=== PATIENT | female | born 1945 | race Caucasian/White ===

== ENCOUNTER 2020-05-28 10:53 | Outpatient (CLI) | payer MEDICARE, SELFPAY ==
[2020-05-28 11:27] LABS: Basophils % 0.6 %; Eosinophils # 0.2 10^3/uL (0.0-0.8); Eosinophils % 2.6 %; Hematocrit 43.4 % (37.0-47.0); Hemoglobin 14.2 g/dL (11.5-15.3); Lymphocytes # 2.4 10^3/uL (0.8-4.8); Lymphocytes % 34.5 %; Mean Corpuscular HGB Conc 32.7 g/dL (30.0-36.0); Mean Corpuscular Hemoglobin 29.5 pg (28.0-34.0); Mean Platelet Volume 10.7 fL (7.4-10.4); Monocytes # 0.7 10^3/uL (0.2-0.9); Monocytes % 9.6 %; Neutrophils # 3.68 10^3/uL (1.8-7.7); Neutrophils % 52.4 %; Nucleated Red Blood Cells % 0 %; Platelet Count 256 10^3/cmm (130-400); Red Blood Count 4.82 10^6/uL (4.1-5.3); Red Cell Distribution Width 13.2 % (12.1-15.1)
[2020-05-28 12:00] LABS: Alanine Aminotransferase 16 U/L (0-33); Albumin Level 4.3 g/dL (3.5-5.2); Alkaline Phosphatase 123 IU/L (35-105); Aspartate Amino Transferase 21 U/L (0-32); Blood Urea Nitrogen 16 mg/dL (8-23); Calcium 9.9 mg/dL (8.5-10.5); Carbon Dioxide 24 mmol/L (22-29); Chloride 104 mmol/L (98-107); Chol HDL Ratio 2.35 mg/dL (0.0-4.40); Cholesterol 120 mg/dL (0-200); Free T4 Free Thyroxine 1.49 ng/dL (0.82-1.77); Glucose 132 mg/dL (65-115); HDL Cholesterol 51 mg/dL (60-100); LDL Cholesterol Calculated 42 mg/dL (50-129); LDL HDL Ratio 0.82 RATIO (0.00-3.22); Osmolality Calculated 289 mOsm/kg (285-295); Sodium 138 mmol/L (136-145); Total Bilirubin 0.6 mg/dL (0.15-1.2); Total Protein 7.3 g/dL (6.6-8.7); Triglycerides 137 mg/dL (0-150)
[2020-05-28 12:59] LABS: Estmated Average Glucose 123; Hemoglobin A1C 5.9 % (4.0-6.0)
== END 2020-05-28 10:54 | disposition home or self-care (01) ==
LOC: LAB 11:00
PROVIDERS: PCP Nurse Practitioner Family; Visit Provider Nurse Practitioner Family
DX: E11.69 Type 2 diabetes mellitus with other specified complication (principal); I10 Essential (primary) hypertension; E78.00 Pure hypercholesterolemia, unspecified
CPT/HCPCS: 36415; 80053; 80061; 83036; 84439; 84443; 85025

== ENCOUNTER → 2020-06-26 15:23 | Outpatient (BNVA) | payer MEDICARE, SELFPAY | PROVIDERS: PCP Nurse Practitioner Family; Referring Provider Nurse Practitioner Family; Visit Provider Specialist | DX: M17.0 Bilateral primary osteoarthritis of knee (principal); M25.562 Pain in left knee; M25.561 Pain in right knee | CPT/HCPCS: 73560; 73565 ==

== ENCOUNTER 2020-11-15 10:16 | Outpatient (CLI) | payer MEDICARE, SELFPAY ==
[2020-11-15 10:46] LABS: Hematocrit 43.3 % (37.0-47.0); Hemoglobin 14.2 g/dL (11.5-15.3); Mean Corpuscular HGB Conc 32.8 g/dL (30.0-36.0); Mean Corpuscular Volume 88.4 fL (81-99); Mean Platelet Volume 10.7 fL (7.4-10.4); Platelet Count 225 10^3/cmm (130-400); Red Cell Distribution Width 13.3 % (12.1-15.1); White Blood Count 5.6 10^3/uL (4.0-10.0)
[2020-11-15 11:09] LABS: Creatinine Urine, Random 71 mg/dL (28-217)
[2020-11-15 11:09] LABS: Alanine Aminotransferase 14 U/L (0-33); Alkaline Phosphatase 120 IU/L (35-105); Anion Gap 13.2 (5-19); Aspartate Amino Transferase 18 U/L (0-32); Blood Urea Nitrogen 15 mg/dL (8-23); Calcium 9.4 mg/dL (8.5-10.5); Carbon Dioxide 23 mmol/L (22-29); Chloride 106 mmol/L (98-107); Glucose 120 mg/dL (65-115); Osmolality Calculated 288 mOsm/kg (285-295); Potassium 4.2 mmol/L (3.5-5.1); Sodium 138 mmol/L (136-145); Total Bilirubin 0.4 mg/dL (0.15-1.2)
[2020-11-15 11:10] LABS: Microalbum Creatinine Ratio Ur 14 mg/dL (0-20)
[2020-11-15 11:11] LABS: Microalbumin Random Urine < 1 ug/dL (0-20)
[2020-11-15 11:22] LABS: Absolute Eosinophils 0.2 10^3/cmm (0.0-0.7); Basophils Absolute 0.1 10^3/cmm (0.0-0.2); Eosinophils 4 %; Lymphocytes 49 %; Monocytes Absolute 0.4 10^3/cmm (0.1-0.6); Platelet Estimate Normal (Normal); Segmented Neutrophils 35 %; Total Cells Counted 100 (0-100)
== END 2020-11-15 10:17 | disposition home or self-care (01) ==
PROVIDERS: PCP Nurse Practitioner Family; Visit Provider Nurse Practitioner Family
DX: I10 Essential (primary) hypertension (principal)
CPT/HCPCS: 36415; 80053; 82044; 85007; 85027

== ENCOUNTER → 2020-11-25 15:03 | Outpatient (BNVA) | payer MEDICARE, SELFPAY | PROVIDERS: Visit Provider Specialist | DX: Z01.812 Encounter for preprocedural laboratory examination (principal); M17.11 Unilateral primary osteoarthritis, right knee; M17.12 Unilateral primary osteoarthritis, left knee | CPT/HCPCS: 73560; 73565 ==

== ENCOUNTER → 2020-12-25 12:03 | Day surgery (SDC) | payer MEDICARE, SELFPAY | PROVIDERS: PCP Nurse Practitioner Family; Visit Provider Specialist | DX: Z01.818 Encounter for other preprocedural examination (principal) | CPT/HCPCS: 93005 ==

== ENCOUNTER → 2021-01-02 15:25 | Outpatient (BNVA) | payer MEDICARE, SELFPAY | PROVIDERS: PCP Nurse Practitioner Family; Visit Provider Specialist | DX: Z01.812 Encounter for preprocedural laboratory examination (principal); Z20.822 Contact with and (suspected) exposure to COVID-19 | CPT/HCPCS: 87635 ==

== ENCOUNTER 2021-01-07 09:24 | Observation (INO) | payer MEDICARE, SELFPAY ==
[2020-12-25 11:50] LABS: Add Urine Microscopic? NO; Charge for UA Resulting for Rev
[2020-12-25 11:54] VITALS: BMI 28.1
[2020-12-25 12:01] LABS: Glucose Urine UA Norm (Normal); Ketones Urine Negative (Negative); Protein Urine Neg (Negative); Specific Gravity, Urine 1.015 (1.005-1.030); Urine Appearance Clear (CLEAR); Urine Color Yellow (Yellow); pH Urine 5 (5-7)
[2020-12-25 12:02] LABS: Bilirubin Urine Neg (Negative); Blood Urine Neg (Negative); Leukocyte Esterase Urine Negative (Negative); Nitrate Urine Negative (Negative); Urobilinogen Urine Norm (Negative)
--- NOTE | 2020-12-25 12:03 | ECG_ITS ---
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 Measurements Intervals [place] Rate: 52 P: 60 SC: 158 QRS: -21 QRSD: 114 T: 4 QT: 438 QTc: 408 Interpretive Statements SINUS BRADYCARDIA WITH OCCASIONAL SUPRAVENTRICULAR PREMATURE COMPLEXES BORDERLINE LEFT AXIS DEVIATION [QRS AXIS < -20] LOW QRS VOLTAGE IN PRECORDIAL LEADS [QRS DEFLECTION < 1.0 mV IN CHEST LEADS] MODERATE INTRAVENTRICULAR CONDUCTION DELAY [110+ ms QRS DURATION] No previous ECG available for comparison Electronically Signed On 12-26-2020 23:59:45 CDT by Ashok Graves M.D. [id number]
[2020-12-25 12:23] LABS: Basophils % 0.5 %; Eosinophils # 0.2 10^3/uL (0.0-0.8); Hematocrit 42.1 % (37.0-47.0); Hemoglobin 13.6 g/dL (11.5-15.3); Lymphocytes % 37.8 %; Mean Corpuscular HGB Conc 32.3 g/dL (30.0-36.0); Mean Corpuscular Hemoglobin 28.8 pg (28.0-34.0); Mean Corpuscular Volume 89.2 fL (81-99); Mean Platelet Volume 10.7 fL (7.4-10.4); Monocytes # 0.8 10^3/uL (0.2-0.9); Monocytes % 10.1 %; Neutrophils # 3.87 10^3/uL (1.8-7.7); Neutrophils % 49.3 %; Nucleated Red Blood Cells % 0 %; Platelet Count 273 10^3/cmm (130-400); Red Blood Count 4.72 10^6/uL (4.1-5.3); Red Cell Distribution Width 13.9 % (12.1-15.1); White Blood Count 7.8 10^3/uL (4.0-10.0)
[2020-12-25 12:51] LABS: Alanine Aminotransferase 13 U/L (0-33); Albumin Level 4.1 g/dL (3.5-5.2); Alkaline Phosphatase 108 IU/L (35-105); Anion Gap 13.2 (5-19); Aspartate Amino Transferase 17 U/L (0-32); Blood Urea Nitrogen 17 mg/dL (8-23); Calcium 9.1 mg/dL (8.5-10.5); Carbon Dioxide 27 mmol/L (22-29); Chloride 102 mmol/L (98-107); Globulin 3.1 g/dL (1.3-4.6); Glucose 103 mg/dL (65-115); Osmolality Calculated 288 mOsm/kg (285-295); Potassium 4.2 mmol/L (3.5-5.1); Sodium 138 mmol/L (136-145); Total Bilirubin 0.5 mg/dL (0.15-1.2); Total Protein 7.2 g/dL (6.6-8.7)
--- NOTE | 2020-12-25 13:12 | ANES.PREANE2 ---
Pre-Anesthetic Assessment Pre-Anesthetic Assessment: Height/Weight: Height 1.7 m Weight 81.647 kg Preop Diagnosis: Right knee DJD Proposed Procedure: Operation Date: 01/07/21 07:00 Proposed Procedures p right Total Knee Arthroplasty 36996 m17.11(Right) - Kirsty Posadas MD Was Beta Bindu taken within 24 hours: Yes Was Clonidine taken within 24 hours: N/A Social: Social History: No alcohol and No tobacco Exam: Pre-Anes Outpt Exam: alert, oriented x 3, clear to auscultation bilaterally and regular rate & rhythm (saurav) Airway: Submandibular: WNL Cervical ROM: WNL MP: 2 Dentition: Full CV/HEM: CV/HEM: HTN Metabolic: Metabolic: DM and Hyperlipidemia Musc/skel: Musc/skel: OA/DJD Anesthetic Plan: ASA status: 3 Anesthesia: Regional (specify below) (SAB/adductor blk) Risk of > 500 ml blood loss (7ml/kg in children): No PFSH Anesthesia PFSH: Medical History High cholesterol Hypertension Type 2 diabetes mellitus Social History Smoking and tobacco status: never smoked Alcohol intake: former Data Anesthesia CBC & Chem 7: 12/25/20 12:12 12/25/20 12:12 Other Labs: Laboratory Results - last 48 hr 12/25/20 12/25/20 12/25/20 11:45 12:12 12:12 WBC 7.8 RBC 4.72 Hgb 13.6 Hct 42.1 MCV 89.2 MCH 28.8 MCHC 32.3 RDW 13.9 Plt Count 273 MPV 10.7 H Neut % (Auto) 49.3 Lymph % (Auto) 37.8 [place] % (Auto) 10.1 Eos % (Auto) 2.0 Baso % (Auto) 0.5 Neut # (Auto) 3.87 Lymph # (Auto) 3.0 [place] # (Auto) 0.8 Eos # (Auto) 0.2 Baso # (Auto) 0.0 Nucleated RBC % (auto) 0 Nucleated RBCs # 0.0 Sodium 138 Potassium 4.2 Chloride 102 Carbon Dioxide 27 Anion Gap 13.2 BUN 17 Creatinine 0.8 GFR Calculation Not Reportable Glucose 103 Calculated Osmolality 288 Calcium 9.1 Total Bilirubin 0.5 AST 17 ALT 13 Alkaline Phosphatase 108 H Total Protein 7.2 Albumin 4.1 Globulin 3.1 Urine Color Yellow Urine Appearance Clear Urine pH 5 Ur Specific Malott 1.015 Urine Protein Neg Urine Glucose (UA) Norm Urine Ketones Negative Urine Blood Neg Urine Nitrate Negative Urine Bilirubin Neg Urine Urobilinogen Norm Ur Leukocyte Esterase Negative Cardiac Studies: No Data to Display
[2021-01-07] VITALS (15 sets, daily range): BP systolic 104–162; BP diastolic 41–78; PULSE 49–70; RESP 15–20; TEMP 36.1–37.2; O2SAT 95–100
[2021-01-07] MEDS: sodium chloride 0.9% 1,000 ML 30 ML IV (06:35)
--- NOTE | 2021-01-07 06:41 | P.ANESUD_ITS ---
Pre-Anesthetic Update Pre-Anesthetic Assessment: Date of Surgery/Procedure: 01/07/21 Preop Hanh gnosis: Right knee DJD Proposed Procedure: Operation Date: 01/07/21 07:00 Proposed Procedures p right Total Knee Arthroplasty 66395 m17.11(Right) - Kirsty Posadas MD Any changes to Pre-Anesthetic Assessment?: No Exam: Pre-Anes Outpt Exam: alert, oriented x 3, clear to auscultation bilaterally and regular rate & rhythm Cardiac Studies: No Data to Display
[2021-01-07 06:43] LABS: Glucose Point of Care 152 mg/dL (70-110)
[2021-01-07] MEDS: acetaminophen 1,000 MG/100 ML PIGGYBACK 400 MG IV ×3 (06:44→22:57)
--- NOTE | 2021-01-07 06:54 | W.PM.OPSUD ---
Surgery/Procedure H&P Update DATE OF PROCEDURE: January 07, 2021 DATE H&P PERFORMED: 12/25/20 H&P UPDATE INFORMATION: I have reviewed H&P completed within last 30 days, I have examined patient prior to procedure, No changes to prior documentation and H&P is in [facility] EMR on date indicated PREOP DIAGNOSIS: Right knee DJD PLANNED PROCEDURE: Operation Date: 01/07/21 07:00 Proposed Procedures p right Total Knee Arthroplasty 73574 m17.11(Right) - Kirsty Posadas MD Related Problem List Diagnoses (1) Primary osteoarthritis of right knee:
[2021-01-07] MEDS: CELEcoxib 200 mg Capsule 400 MG PO (06:58)
[2021-01-07] MEDS: vancomycin 1,000 MG in sodium chloride 0.9% 250 ML 250 MG IV (06:59)
--- NOTE | 2021-01-07 07:41 | ANES.PROC ---
Anesthesia Procedures Procedure/Date: 01/07/21 Nerve Block ^: Nerve Block 1: Main Anesthesia: spinal anesthesia block Time Out Performed: Yes Consent: requested by attending/covering physician, from patient, risks and benefits reviewed and patient agrees to proceed Nerve block location: adductor canal (right) Anesthesia monitors applied: pulse oximetry, EKG, BP cuff and oxygen Nerve block position: supine Anesthetic Used: ropivicaine 0.5% Amount of anesthesia used (mL): 20 Ultrasound used to: recognize landmarks Nerve Stimulator Used?: No Interscalene/Femoral BLK: 4 stimuplex 21 g needle used for position and inplane approach, visualize local anesthetic spread and no vascular puncture identified Injection: neg aspiration of heme Patient Tolerated Procedure: well Complications: none
[2021-01-07] MEDS: vancomycin 1,000 MG SDV 1000 MG XX (08:06)
[2021-01-07] MEDS: ceFAZolin 1,000 mg SDV 2000 MG IRRIGATION (08:06)
--- NOTE | 2021-01-07 09:41 | XRR_ITS ---
NOTE: Report was unsigned for reason: Order was edited. Original Signature date and time was: 01/07/2021 1050 PROCEDURE INFORMATION: Exam: XR Right Knee Exam date and time: 01/07/2021 10:08 AM Age: 75 years old Clinical indication: Device placement; Joint replacement hardware; Prior surgery; Surgery date: Post-operative (0-2 days); Surgery type: Otal knee arthroplasty; Additional info: Status post total knee arthroplasty TECHNIQUE: Imaging protocol: XR Right knee. Views: 3 views. COMPARISON: CR XR knees AP WB w BI lmt ORTH 11/25/2020 3:09 PM FINDINGS: Bones/joints: The patient is status post right total knee arthroplasty with patellar resurfacing. No evidence of hardware related complication. No fracture or dislocation. Expected postoperative soft tissue changes noted. Soft tissues: See Bones/joints finding. MTDD XR/XR knee RT 3V* [id number] IMPRESSION: Status post right total knee arthroplasty without evidence of hardware related complication.
--- NOTE | 2021-01-07 09:53 | PM.OP ---
Operative Report Date of procedure: January 07, 2021 Pre-op Diagnosis: Right knee DJD Post-op diagnosis: same Post-op Findings: Significant degenerative osteoarthritis with large superior patellar osteophyte and multiple other osteophytes. Procedure Done: Right total knee arthroplasty. Implants: The Catalina total knee system with a size 5 triathlon beaded posterior stabilized femur right, a triathlon titanium tibial component size 6 beaded, a triathlon X3 posterior stabilized tibial bearing insert size 6 X 11 mm and a beaded triathlon titanium asymmetric patella size 35 x 10 mm Specimens removed/disposition: Bone, disposed of Pathology: none sent Surgeon: Kirsty Posadas Office Agent[facility] Anesthesia: MAC (Spinal with MAC) Estimated blood loss (mL): 25 Tourniquet time (min): 99 Tourniquet time: At 250 mmHg IV fluids (mL): 900 Urine output (mL): 200 Complications: None Findings: Severe degenerative osteoarthritis with large osteophytes. Large suprapatellar osteophyte in addition to multiple other osteophytes. Varus deformity. Condition: stable Disposition: PACU (Then to floor for postoperative rehabilitation and pain management.) Brief History: This 75-year-old woman presented to the office with severe right knee pain which was incapacitating. She had severe varus deformity of both knees with the right knee worse than the left. She was unable to ambulate or perform reasonable activities of daily living. None of these activities were able to be accomplished comfortably. She was unresponsive to conservative measures and wished to proceed with right total knee arthroplasty risks and complications were discussed. Consents were signed preoperatively, and questions were answered. The patient wished to proceed. Procedure: The patient was brought to the operating theater, and after undergoing adequate spinal anesthesia supplemented with regional block and MAC, ASA 3, the right lower extremity was prepped with Dura-Prep and draped in usual fashion following placement of a tourniquet high on the leg. The leg was then draped free. Following prepping and draping, the leg was exsanguinated, and the tourniquet was elevated to 250 mmHg for a total tourniquet time of 99 minutes. Prior to elevation of the tourniquet, but following exposure of the site of surgery, a surgical pause was performed. At the time of the surgical pause, we confirmed the site and side of surgery. Additionally, we confirmed the appropriate and timely administration of preoperative antibiotics, vancomycin 1 g. and Transexemic acid 1 g. The availability of equipment was confirmed, and the patient's identity was verbalized as well. Following the surgical pause, an incision was made centering over the patella continuing proximally and distally as necessary to allow access to the knee joint. Dissection continued through skin and soft tissues using a scalpel. Hemostasis was obtained using electrocautery. The skin incision was followed by a median parapatellar arthrotomy. The leg was extended and the patella was everted. Following this, the leg was returned to flexed position. The distal femur was exposed, and a drill hole was made in this for placement of the distal femoral jig. The distal femoral jig was set at 5? of valgus. The distal femoral cutting block was then placed in appropriate position, and an devaughn wing was used to confirm an appropriate amount of distal femur would be resected. The distal femoral resection was accomplished with 8 mm of bone being resected distally. After the distal femoral resection had been accomplished, the femur was measured and it measured a size 5. Medial lateral dimension also measured a size 5. A size 5 femoral cutting block was placed in position, and we were then able to accomplish the anterior, posterior and chamfer cuts. This jig was then removed and the notch guide was placed in position. With the notch guide in appropriate position, the notch was excised including resection of the anterior and posterior cruciate ligaments. This notch was to allow for the posterior stabilized femoral component. At this point, the femur was prepared and attention was directed to the proximal tibia. The posterior knee retractor was placed along with medial and lateral retractors. Further resection of the menisci was accomplished as we had better visualization. A complete meniscectomy was performed both medially and laterally with care being taken to protect the popliteus. Retractors were then placed so that the proximal tibia was well visualized. A drill hole was then made in the tibia for placement of the intramedullary guide. This guide was placed so that approximately 2 mm of bone would be resected from the deficient medial tibial plateau. The intramedullary guide was utilized supplemented with an extramedullary guide to assure appropriate alignment for the proximal tibial resection. The proximal tibial jig was then evaluated, pinned in position, and the proximal tibial resection was accomplished without difficulty. The jig was removed, and the proximal tibia was measured. It measured a size 6. We then attempted a trial reduction with a size 6 by 9 mm. Osteophytes were also removed from the tibia. The femoral component was placed in position for the trial reduction, and the knee was placed through range of motion. With this, there was appropriate patellar tracking. The knee was found to be slightly tight in the posterior aspect, and posterior as well as medial release was accomplished. Extension was noted to be full as well. After the knee was manipulated following the posterior release, we were able to insert a size 6 x 11 mm insert. With this we had excellent varus valgus alignment and full extension. The knee was stable to varus valgus stress as well. Therefore, this was the chosen component. There was full extension and flexion without lift off and the rotation of the tibia was marked. Alignment was checked from the hip to the ankle, and this was noted to be appropriate as well. Attention was then directed to the patella. The patella was measured with a caliper. We resected sufficient patella to leave approximately 14 mm of patella remaining. Measurements of the patella then indicated that a size asymmetric 35 mm x 10 mm was the appropriate patellar size. We then placed the jig to drill for the 3 pegs of the press-fit patella, and these drill holes were made without incident. A trial patella was then placed, and the knee was placed through range of motion. The patella was noted to track nicely without evidence of subluxation. The femur was prepared for a press-fit femur by drilling 2 holes for the femoral pegs. All trial components were subsequently removed. The tibial tray was then pinned into position, and we broached the tibia for the stem of the tibial component. Subsequently, 4 drill holes were made for placement of the press-fit tibia. This was accomplished without difficulty. Care was taken to assure appropriate rotation of the tibia as well as appropriate position on the proximal tibia. The tibial tray was completely seated on the proximal tibia. Following broaching, the tibial guide was removed, and all surfaces were copiously irrigated. The surfaces were then dried and a bone plug was placed into the distal femur. Exparel was also injected at this point. The Tritanium tibia was impacted into position. The beaded femur was then impacted into position in a cementless fashion. The tibial insert was placed. The patella was pressed into position with a patellar clamp. The knee was irrigated with 20 mL of Betadine and 500 mL of normal saline, and this was allowed to remain in the knee for 3-4 minutes. The knee was then copiously irrigated and suctioned dry. Attention was then directed to closure. Closure was accomplished with 0 Vicryl in the fascial tissues. Following this, a 2-0 Monocryl was used in the subcutaneous tissues, and the skin was closed with skin miles. A sterile dressing was then placed consisting of Dermabond Prineo, Telfa, 4x4's, sterile soft roll, and an Calvin wrap. The patient was returned the Recovery Room in a satisfactory condition. X-rays were obtained there. The patient will be discharged to the floor for postoperative rehabilitation and pain management. Associated Problem List Diagnoses (1) Primary osteoarthritis of right knee:
[2021-01-07] MEDS: chlorhexidine gluconate 0.12% Btl 473 mL 30 ML MUCOUS MEM ×3 (12:22→21:42)
--- NOTE | 2021-01-07 16:56 | ANE.PACU2 ---
Inpatient post-anesthesia follow up: Airway intact: Yes Vital signs: Temperature 97.5 F Pulse Rate 65 Respiratory Rate 18 Blood Pressure 133/66 Pulse Oximetry 98 Oxygen Delivery Me thod Room Air Oxygen Flow Rate Fraction of Inspir ed Oxygen Hydration adequate: Yes Nausea and vomiting: No Pain level: 2 Mental status: Baseline
[2021-01-07] MEDS: mupirocin oint 22 gm 1 APPLIC NASAL (17:20)
[2021-01-07] MEDS: aspirin 325 mg EC Tablet PO (17:21)
[2021-01-07] MEDS: calcium carbonate 500 mg Chew Tablet 1000 MG PO (17:21)
[2021-01-07] MEDS: iron polysaccharide complex 150 mg Capsule PO (17:21)
[2021-01-07] MEDS: lisinopril 5 mg Tablet PO (17:21)
[2021-01-07] MEDS: sennosides-docusate Tablet 2 TAB PO (17:21)
[2021-01-07] MEDS: CELEcoxib 200 mg Capsule PO (18:16)
[2021-01-07] MEDS: metoprolol tartrate 25 mg Tablet 12.5 MG PO (21:39)
[2021-01-08] VITALS: BP 111/65; PULSE 57; RESP 18; TEMP 36.8; O2SAT 97
[2021-01-08 02:46] LABS: Basophils % 0.3 %; Eosinophils # 0.2 10^3/uL (0.0-0.8); Eosinophils % 2.2 %; Hematocrit 34.1 % (37.0-47.0); Hemoglobin 11.2 g/dL (11.5-15.3); Lymphocytes # 2.6 10^3/uL (0.8-4.8); Lymphocytes % 29.8 %; Mean Corpuscular HGB Conc 32.8 g/dL (30.0-36.0); Mean Corpuscular Hemoglobin 29.6 pg (28.0-34.0); Monocytes # 1.2 10^3/uL (0.2-0.9); Monocytes % 14.4 %; Neutrophils # 4.54 10^3/uL (1.8-7.7); Nucleated Red Blood Cells % 0 %; Platelet Count 199 10^3/cmm (130-400); Red Blood Count 3.79 10^6/uL (4.1-5.3); Red Cell Distribution Width 13.9 % (12.1-15.1); White Blood Count 8.6 10^3/uL (4.0-10.0)
[2021-01-08 03:04] LABS: Anion Gap 11.9 (5-19); Blood Urea Nitrogen 14 mg/dL (8-23); Calcium 8.3 mg/dL (8.5-10.5); Carbon Dioxide 23 mmol/L (22-29); Chloride 108 mmol/L (98-107); Glucose 143 mg/dL (65-115); Osmolality Calculated 291 mOsm/kg (285-295); Potassium 3.9 mmol/L (3.5-5.1); Sodium 139 mmol/L (136-145)
[2021-01-08 04:00] VITALS: BP 100/59; PULSE 54; RESP 16; TEMP 36.7; O2SAT 97
[2021-01-08] MEDS: acetaminophen 1,000 MG/100 ML PIGGYBACK 400 MG IV (06:13)
[2021-01-08] MEDS: CELEcoxib 200 mg Capsule PO (06:13)
[2021-01-08] MEDS: vancomycin 1,000 MG in sodium chloride 0.9% 250 ML 250 MG IV (06:15)
[2021-01-08 08:30] VITALS: BP 136/78; PULSE 59; RESP 18; TEMP 36.7; O2SAT 97
[2021-01-08] MEDS: lisinopril 5 mg Tablet PO (08:37)
[2021-01-08] MEDS: metformin 500 mg Tablet PO (08:37)
[2021-01-08] MEDS: cholecalciferol (vitamin D3) 1,000 unit Tablet 1000 UNIT PO (08:37)
[2021-01-08] MEDS: multivitamin therapeutic Tablet 1 TAB PO (08:37)
[2021-01-08] MEDS: iron polysaccharide complex 150 mg Capsule PO (08:37)
[2021-01-08] MEDS: aspirin 325 mg EC Tablet PO (08:37)
[2021-01-08] MEDS: omega-3 fatty acids 1,000 mg Capsule 1000 MG PO (08:37)
[2021-01-08] MEDS: amlodipine 10 mg Tablet PO (08:37)
[2021-01-08] MEDS: calcium carbonate 500 mg Chew Tablet 1000 MG PO (08:38)
[2021-01-08] MEDS: sennosides-docusate Tablet 2 TAB PO (08:38)
[2021-01-08] MEDS: metoprolol tartrate 25 mg Tablet 12.5 MG PO (08:38)
[2021-01-08] MEDS: atorvastatin 40 mg Tablet 20 MG PO (08:38)
[2021-01-08] MEDS: glimepiride 2 mg Tablet 1 MG PO (08:39)
[2021-01-08] MEDS: chlorhexidine gluconate 0.12% Btl 473 mL 30 ML MUCOUS MEM ×2 (08:39→12:12)
[2021-01-08] MEDS: mupirocin oint 22 gm 1 APPLIC NASAL (08:47)
[2021-01-08 09:16] VITALS: RESP 18
[2021-01-08] MEDS: oxyCODONE 5 mg IR Tab/Cap PO (09:16)
--- NOTE | 2021-01-08 10:23 | PC.CHAP ---
Pastoral Care Encounter/Spiritual Assessment Type of Contact [] Declined candles pourer visit [] Patient/Family/Request visit [] Outpatient visit [] Follow-up visit [] Physician referral x [] Code/Alert [x] Routine visit [] Staff referral [] Actively dying [] Patient sleeping [] Family support [] [] Out of room [] Palliative care [] [] Receiving care in room [] Pre-surgical visit [] Trauma [] Long length of stay [] ICU visit [] Other: Relational/Emotional Strength [x] Patient feels connected with others/family/visitors/staff [] Distress [] Loneliness/isolation [] Abandonment Spirituality of Patient [x] Person of Taryn [] Attends Catholic of their Taryn [] Believes in Prayer [] Reads Bible or Jewish materials [] There are Spiritual issues to be addressed Kitchen Designer Interventions x[] Prayer [x] Active listening [x] Non-anxious presence [] Spiritual/emotional support [] Crisis/trauma care [] Spiritual counseling [] Bereavement support [] Provided bereavement packet [] Provided Bible/devotional materials [] Provided toy/stuffed animal, coloring book to patient or family member [] Provided Communion [] Anointing/Moore [] Salvation [x] Completed spiritual assessment [] Other: Impact on Illness or Injury [] Angry [] Fearful [] Anxious [] Often cries [] Exhaustion [] Unable to work [] Unable to attend zoroastrianism [] Unable to walk/stand [] Unable to read [] Unable to drive [] Unable to eat/drink [] Unable to sleep [] Unable to be with family [] Patient intubated [] Other: Summary feeling good Time spent with patient 15 min
[2021-01-08 11:25] VITALS: BP 108/68; PULSE 51; RESP 16; TEMP 36.5; O2SAT 98
--- NOTE | 2021-01-08 14:21 | PM.DCS ---
Discharge Providers Date of Admission: 01/07/21 09:24 Date of Discharge: January 08, 2021 Attending Provider at Admission: Kirsty Posadas MD Attending Provider at Discharge: Kirsty Posadas MD Primary Care Provider: Regla Orona NP Diagnoses at Discharge Discharge Diagnosis (1) Primary osteoarthritis of right knee: Status: Acute (2) History of total right knee replacement: Status: Acute Permanent problem details: Catalina total knee system with a size 5 triathlon beaded posterior stabilized femur right, a triathlon titanium tibial component size 6 beaded, a triathlon X3 posterior stabilized tibial bearing insert size 6 X 11 mm and a beaded triathlon titanium asymmetric patella size 35 x 10 mm Reason for Visit Reason for Visit: right Total Knee Arthroplasty 12150 m17.11 Hospital Course Hospital Course This 75-year-old woman presented with complaints of severe right knee pain. She was brought to the hospital for same-day surgery in the form of right total knee arthroplasty. She tolerated the procedure well. She worked with physical therapy the following day and was independent in her room. Pain was well managed on oral pain medication. There is no evidence of infection or DVT. There is no drainage from the wound. The patient wished to be discharged home with home health. I was in agreement with this and this was arranged for her. Physical Exam Const: COMMON NORMALS: no acute distress, average body habitus, patient oriented x3 and alert GENERAL APPEARANCE: cooperative and comfortable ORIENTATION/CONSCIOUSNESS: Yes awake HENMT: COMMON NORMALS: normocephalic and atraumatic HEAD & SCALP: normocephalic and atraumatic Eye: GENERAL EYE: appearance normal, both eyes and all related structures Chest: COMMONS NORMALS: normal inspection of the chest Resp: COMMON NORMALS: normal respiratory effort EFFORT & INSPECTION: Yes able to speak in complete sentences and Yes symmetric chest movement Extremity: RIGHT LOWER EXTREMITY: Yes knee joint (Dressing is removed. Wound is benign.) Right knee: Yes inspection (There is no drainage and minimal swelling.), Yes palpation (Minimal tenderness.), Yes ROM (Not evaluated.) and Yes neurovascular exam (Intact with no evidence of DVT.) Neuro: COMMON NORMALS: patient oriented x3 SENSORIUM/ORIENTATION: Yes alert Psych: COMMON NORMALS: mental status grossly normal APPEARANCE: Yes grossly normal ATTITUDE: Yes calm and Yes engaged ATTENTION/CONCENTRATION: Yes attention grossly intact Skin: COMMON NORMALS: no rashes or lesions noted GENERAL SKIN EXAM: no rashes or lesions noted Urinary Catheter Management^: F: Cath Placed During This Visit: yes, but has since been removed by the nurse Reason for Continuing Indwelling Catheter: Perioperative Use in Selected Surgeries Urinary Catheter Date of Insertion: 01/07/21 Urinary Catheter Time of Insertion: 07:25 Date Urinary Catheter Removed: 01/08/21 Time Urinary Catheter Discontinued: 06:22 Discharge Data Data Completed and Pending: Completed Studies During Hospitalization Category Date Time Status XR knee RT 1-2V 7 3560 Urgent Exams 01/07/21 09:41 Completed Labs from last 24 hours 01/08/21 01/08/21 02:21 02:21 WBC 8.6 RBC 3.79 L Hgb 11.2 L Hct 34.1 L MCV 90.0 MCH 29.6 MCHC 32.8 RDW 13.9 Plt Count 199 MPV 11.0 H Neut % (Auto) 53.0 Lymph % (Auto) 29.8 [place] % (Auto) 14.4 Eos % (Auto) 2.2 Baso % (Auto) 0.3 Neut # (Auto) 4.54 Lymph # (Auto) 2.6 [place] # (Auto) 1.2 H Eos # (Auto) 0.2 Baso # (Auto) 0.0 Nucleated RBC % (a uto) 0 Nucleated RBCs # 0.0 Sodium 139 Potassium 3.9 Chloride 108 H Carbon Dioxide 23 Anion Gap 11.9 BUN 14 Creatinine 0.7 GFR Calculation Not Reportable Glucose 143 H Calculated Osmolal ity 291 Calcium 8.3 L Vitals: Last Vital Signs Temp 97.7 F 01/08/21 11:25 Pulse 51 L 01/08/21 11:25 Resp 16 01/08/21 11:25 BP 108/68 01/08/21 11:25 Pulse Ox 98 01/08/21 11:25 Discharge Plan Discharge Patient Disposition: Home Health Service Condition: Stable Prescriptions: New acetaminophen 500 mg Tablet 1,000 mg PO Q8H Qty: 0 RF: 0 aspirin 325 mg Tablet,Delayed Release (Dr/Ec) 325 mg PO BID Qty: 0 RF: 0 celecoxib 200 mg Capsule 200 mg PO DAILY Qty: 30 RF: 1 oxycodone 5 mg Tablet 5 mg PO Q4H PRN (Reason: Moderate Pain) 7 Days Qty: 30 RF: 0 Continued metoprolol tartrate 25 mg tablet 12.5 mg PO BID RF: 0 lovastatin 10 mg tablet 10 mg PO DAILY RF: 0 glimepiride 1 mg tablet 1 mg PO DAILY RF: 0 omega-3 fatty acids [Fish Oil Concentrate] 1,000 mg capsule 1,000 mg PO DAILY RF: 0 multivitamin Tablet 1 tab PO DAILY RF: 0 turmeric 400 mg capsule 400 mg PO DAILY RF: 0 gelatin 600 mg capsule 600 mg PO DAILY PRN (Reason: skin) RF: 0 amlodipine 5 mg tablet 10 mg PO DAILY RF: 0 lisinopril 5 mg Tablet 5 mg PO BID RF: 0 metformin 500 mg Tablet 500 mg PO DAILY RF: 0 Held meloxicam 15 mg tablet 15 mg PO DAILY PRN (Reason: Pain) RF: 0 Hold Instructions: Resume on 02/07/21. Discharge Orders: Discharge Order (Routine); Ordered 01/08/21 Ordered By: Kirsty Posadas Referrals: [facility] [Outside] Kirsty Posadas MD [Physician] - 01/20/21 11:15 am Regla Orona NP [Primary Care Provider] - 01/15/21 9:00 am Discharge Diet: Advance as tolerated, Usual diet and Diabetic Discharge Activity: Increase activity as tolerated, Limit activity as instructed, Use walker/crutches as instructed and As per PT/OT instructions Patient Instructions: Aspirin (By mouth), Oxycodone, Rapid Release (By mouth), Celecoxib (By mouth), Total Knee Replacement (DC), Opioid Safety Activity Restrictions/Additional Instructions: Ice and elevation right lower extremity. Range of motion, gait training, and strengthening per physical therapy. Discharge Attestations Time Spent in Discharge Care*: greater than 30 min Specific Discharge Activities: educating patient, discussing with correctional casework specialist/social workers/dc planners and documenting/other paperwork Quality Metrics Clinical Quality Measures During this hospital stay, did patient experience: None Coding Level of Care Code Acute g FW DC note Diagnoses Primary osteoarthritis of right knee M17.11 History of total right knee replacement Z96.651
[2021-01-08 15:05] VITALS: BP 108/68; PULSE 51; RESP 16; TEMP 36.5; O2SAT 98
== END 2021-01-08 15:06 | disposition home health service (06) ==
LOC: MEDSURG 09:25
PROVIDERS: Admitting Provider Specialist; PCP Nurse Practitioner Family; Visit Provider Specialist
PROC: (CPT 27447; principal; 2021-01-07 07:00)
DX: M17.11 Unilateral primary osteoarthritis, right knee (principal); I10 Essential (primary) hypertension; E11.9 Type 2 diabetes mellitus without complications; E78.5 Hyperlipidemia, unspecified; M19.90 Unspecified osteoarthritis, unspecified site
CPT/HCPCS: 27447; 36415; 36416; 51702; 64447; 73560; 73562; 76942; 80048; 80053; 81003; 82962; 85025; 96365; 97110; 97116; 97161; 97165; C1776; C9290; G0378; J0690; J2704; J2795; J3370; J3490; J7030; J7050

== ENCOUNTER → 2021-01-20 11:12 | Outpatient (BNVA) | payer MEDICARE, SELFPAY | PROVIDERS: PCP Nurse Practitioner Family; Visit Provider Specialist | DX: Z96.651 Presence of right artificial knee joint (principal); Z47.1 Aftercare following joint replacement surgery | CPT/HCPCS: 73560; 73565 ==

== ENCOUNTER → 2021-02-17 14:47 | Outpatient (BNVA) | payer MEDICARE, SELFPAY | PROVIDERS: PCP Nurse Practitioner Family; Visit Provider Specialist | DX: Z96.651 Presence of right artificial knee joint (principal); M17.12 Unilateral primary osteoarthritis, left knee | CPT/HCPCS: 73560; 73565 ==

== ENCOUNTER 2021-02-26 12:56 | Outpatient (RCR) | payer MEDICARE, SELFPAY | END 2021-03-08 23:59 | disposition home or self-care (01) | LOC: SPT 12:56 | PROVIDERS: PCP Nurse Practitioner Family; Referring Provider Specialist; Visit Provider Specialist | DX: Z47.1 Aftercare following joint replacement surgery (principal); Z96.651 Presence of right artificial knee joint | CPT/HCPCS: 97161 ==

== ENCOUNTER → 2021-04-23 14:31 | Outpatient (BNVA) | payer MEDICARE, SELFPAY | PROVIDERS: PCP Nurse Practitioner Family; Visit Provider Specialist | DX: Z96.651 Presence of right artificial knee joint (principal) | CPT/HCPCS: 73560; 73565 ==

== ENCOUNTER 2021-08-21 15:29 | Outpatient (CLI) | payer MEDICARE, SELFPAY ==
[2021-08-21 16:17] LABS: Hematocrit 40.3 % (37.0-47.0); Hemoglobin 13.3 g/dL (11.5-15.3); Mean Corpuscular Hemoglobin 29.2 pg (28.0-34.0); Mean Corpuscular Volume 88.6 fl (81-99); Mean Platelet Volume 10.8 fL (7.4-10.4); Platelet Count 301 10^3/cmm (130-400); Red Blood Count 4.55 10^6/uL (4.1-5.3); Red Cell Distribution Width 13.5 % (12.1-15.1); White Blood Count 9.6 10^3/uL (4.0-10.0)
[2021-08-21 16:51] LABS: Alanine Aminotransferase 15 U/L (0-33); Albumin Level 4.2 g/dL (3.5-5.2); Alkaline Phosphatase 107 IU/L (35-105); Anion Gap 18.3 (5-19); Aspartate Amino Transferase 17 U/L (0-32); Blood Urea Nitrogen 19 mg/dL (8-23); Calcium 8.8 mg/dL (8.5-10.5); Carbon Dioxide 20 mmol/L (22-29); Chloride 101 mmol/L (98-107); Chol HDL Ratio 2.29 mg/dL (0.0-4.40); Cholesterol 133 mg/dL (0-200); Free T4 Free Thyroxine 1.38 ng/dL (0.82-1.77); Globulin 2.4 g/dL (1.3-4.6); Glucose 83 mg/dL (65-115); HDL Cholesterol 58 mg/dL (60-100); LDL Cholesterol Calculated 57 mg/dL (50-129); Osmolality Calculated 281 mOsm/kg (285-295); Potassium 4.3 mmol/L (3.5-5.1); Sodium 135 mmol/L (136-145); Thyroid Stimulating Hormone 0.89 uIU/mL (0.27-4.20); Total Bilirubin 0.3 mg/dL (0.15-1.2); Total Protein 6.6 g/dL (6.6-8.7); Triglycerides 92 mg/dL (0-150); VLDL Cholestrol Calculation 18 mg/dL (0-30)
[2021-08-21 16:57] LABS: Absolute Eosinophils 0.2 10^3/cmm (0.0-0.7); Absolute Neutrophil 4.8 10^3/cmm (1.4-6.5); Absolute Segmented Neutrophil 4.8 10/cmm (1.6-7.1); Eosinophils 3 %; Lymphocytes 29 %; Lymphocytes Absolute 3.8 10^3/cmm (1.2-3.4); Monocytes Absolute 0.7 10^3/cmm (0.1-0.6); Platelet Estimate Normal (Normal); Segmented Neutrophils 50 %; Total Cells Counted 100 (0-100)
[2021-08-21 17:12] LABS: Estmated Average Glucose 114; Hemoglobin A1C 5.6 % (4.0-6.0)
[2021-08-21 17:19] LABS: Creatinine Urine, Random 62 mg/dL (28-217)
[2021-08-21 17:22] LABS: Microalbum Creatinine Ratio Ur 16 mg/dL (0-20); Microalbumin Random Urine 1 ug/dL (0-20)
== END 2021-08-21 15:30 | disposition home or self-care (01) ==
PROVIDERS: PCP Nurse Practitioner Family; Visit Provider Nurse Practitioner Family
DX: I10 Essential (primary) hypertension (principal); E11.69 Type 2 diabetes mellitus with other specified complication
CPT/HCPCS: 80053; 80061; 82044; 83036; 84439; 84443; 85007; 85027

== ENCOUNTER 2021-09-16 09:42 | Outpatient (CLI) | payer MEDICARE, SELFPAY ==
[2021-09-16 10:29] LABS: Hematocrit 41.7 % (37.0-47.0); Hemoglobin 13.7 g/dL (11.5-15.3); Mean Corpuscular HGB Conc 32.9 g/dL (30.0-36.0); Mean Corpuscular Hemoglobin 29.4 pg (28.0-34.0); Mean Corpuscular Volume 89.5 fl (81-99); Mean Platelet Volume 10.9 fL (7.4-10.4); Platelet Count 277 10^3/cmm (130-400); Red Blood Count 4.66 10^6/uL (4.1-5.3); Red Cell Distribution Width 13.7 % (12.1-15.1); White Blood Count 7.4 10^3/uL (4.0-10.0)
[2021-09-16 10:51] LABS: Estmated Average Glucose 128; Hemoglobin A1C 6.1 % (4.0-6.0)
[2021-09-16 11:09] LABS: Absolute Neutrophil 3.8 10^3/cmm (1.4-6.5); Absolute Segmented Neutrophil 3.6 10/cmm (1.6-7.1); Band Neutrophils Absolute 0.2 10^3/cmm (0.0-1.2); Eosinophils 1 %; Lymphocytes 36 %; Lymphocytes Absolute 2.7 10^3/cmm (1.2-3.4); Monocytes Absolute 0.9 10^3/cmm (0.1-0.6); Platelet Estimate Normal (Normal); Segmented Neutrophils 48 %; Total Cells Counted 100 (0-100)
[2021-09-16 11:35] LABS: Alanine Aminotransferase 14 U/L (0-33); Albumin Level 4.5 g/dL (3.5-5.2); Alkaline Phosphatase 123 IU/L (35-105); Anion Gap 15.3 (5-19); Aspartate Amino Transferase 22 U/L (0-32); Blood Urea Nitrogen 13 mg/dL (8-23); Calcium 9.3 mg/dL (8.5-10.5); Carbon Dioxide 24 mmol/L (22-29); Chloride 102 mmol/L (98-107); Chol HDL Ratio 2.26 mg/dL (0.0-4.40); Cholesterol 147 mg/dL (0-200); Free T4 Free Thyroxine 1.56 ng/dL (0.82-1.77); Globulin 2.5 g/dL (1.3-4.6); Glucose 128 mg/dL (65-115); HDL Cholesterol 65 mg/dL (60-100); LDL Cholesterol Calculated 61 mg/dL (50-129); LDL HDL Ratio 0.94 RATIO (0.00-3.22); Osmolality Calculated 286 mOsm/kg (285-295); Potassium 4.3 mmol/L (3.5-5.1); Sodium 137 mmol/L (136-145); Thyroid Stimulating Hormone 0.86 uIU/mL (0.27-4.20); Total Bilirubin 0.5 mg/dL (0.15-1.2); Triglycerides 105 mg/dL (0-150)
== END 2021-09-16 09:43 | disposition home or self-care (01) ==
LOC: LAB 09:50
PROVIDERS: PCP Nurse Practitioner Family; Visit Provider Nurse Practitioner Family
DX: E11.69 Type 2 diabetes mellitus with other specified complication (principal)
CPT/HCPCS: 36415; 80053; 80061; 83036; 84439; 84443; 85007; 85027

== ENCOUNTER → 2022-10-14 14:45 | Outpatient (BNVA) | payer MEDICARE, SELFPAY | PROVIDERS: Referring Provider Family Medicine; Visit Provider Specialist | DX: M17.12 Unilateral primary osteoarthritis, left knee (principal); Z96.651 Presence of right artificial knee joint | CPT/HCPCS: 73560; 73565; 99214 ==

== ENCOUNTER 2022-11-11 13:31 | Outpatient (CLI) | payer MEDICARE, SELFPAY ==
--- NOTE | 2022-11-11 13:30 | CT_ITS ---
WS: [id number] CT LEFT KNEE, NONCONTRAST TECHNIQUE: Noncontrast CT of the LEFT knee to include the LEFT hip and ankle. CLINICAL INFORMATION: KNEE PAIN COMPARISON: None. DLP: 1024.[address] scans at [facility] use at least one of these dose optimization techniques: automated e xposure control; mA and/or kV adjustment per patient size (includes targeted exams where dose is matc hed to clinical indication); or iterative reconstruction. FINDINGS: Prior postoperative changes RIGHT TKA. Advanced tricompartmental arthritis LEFT knee worse medial gerhard nt compartment with [id number] articulation. Chondrocalcinosis. Hypertrophic patella. Vascular calc ification. Small suprapatellar effusion. Hypertrophic changes along the joint line. Small popliteal c yst. Moderate degenerative arthritis LEFT greater than RIGHT SI joints. Mild degenerative narrowing both h ips. Normal visualized pubic rami. A few sigmoid diverticuli. Calcified uterine fibroid measuring 3.[address]/CT knee LT NEYMAR IMPRESSION: Images obtained for preoperative purposes.
== END 2022-11-11 13:32 | disposition home or self-care (01) ==
PROVIDERS: PCP Family Medicine; Visit Provider Specialist
DX: M25.562 Pain in left knee (principal)
CPT/HCPCS: 73700

== ENCOUNTER 2022-11-30 14:04 | Outpatient (CLI) | payer MEDICARE, SELFPAY ==
[2022-11-30 14:40] LABS: Basophils % 0.5 %; Eosinophils # 0.2 10^3/uL (0.0-0.8); Eosinophils % 2.8 %; Hematocrit 42.4 % (37.0-47.0); Hemoglobin 13.9 g/dL (11.5-15.3); Lymphocytes # 3.6 10^3/uL (0.8-4.8); Lymphocytes % 41.4 %; Mean Corpuscular HGB Conc 32.8 g/dL (30.0-36.0); Mean Corpuscular Hemoglobin 28.4 pg (28.0-34.0); Mean Corpuscular Volume 86.7 fl (81-99); Mean Platelet Volume 10.5 fL (7.4-10.4); Monocytes # 0.9 10^3/uL (0.2-0.9); Monocytes % 9.9 %; Neutrophils # 3.88 10^3/uL (1.8-7.7); Neutrophils % 45.2 %; Nucleated Red Blood Cells % 0 %; Platelet Count 266 10^3/cmm (130-400); Red Blood Count 4.89 10^6/uL (4.1-5.3); White Blood Count 8.6 10^3/uL (4.0-10.0)
[2022-11-30 14:59] LABS: Anion Gap 14.5 (5-19); Blood Urea Nitrogen 19 mg/dL (8-23); Calcium 9.2 mg/dL (8.5-10.5); Carbon Dioxide 23 mmol/L (22-29); Chloride 101 mmol/L (98-107); Glucose 99 mg/dL (65-115); Osmolality Calculated 280 mOsm/kg (285-295); Potassium 4.5 mmol/L (3.5-5.1); Sodium 134 mmol/L (136-145)
== END 2022-11-30 14:05 | disposition home or self-care (01) ==
PROVIDERS: PCP Family Medicine; Visit Provider Specialist
DX: M17.12 Unilateral primary osteoarthritis, left knee
CPT/HCPCS: 36415; 80048; 85025; 99214

== ENCOUNTER → 2022-12-08 10:21 | Outpatient (BNVA) | payer MEDICARE, SELFPAY | PROVIDERS: PCP Family Medicine; Referring Provider Specialist; Visit Provider Clinical Nurse Specialist Adult Health | DX: E11.9 Type 2 diabetes mellitus without complications (principal); M17.12 Unilateral primary osteoarthritis, left knee | CPT/HCPCS: 83036 ==

== ENCOUNTER 2022-12-10 12:21 | Outpatient (CLI) | payer MEDICARE, SELFPAY ==
--- NOTE | 2022-12-10 12:00 | USCV_ITS ---
Maria Fernanda Dahl Age: 76 Gender: F : 1945 Exam Date: 12/10/2022 12:45 Ordering Phys: Wander Brennan NP Technologist: Gary Lilly Exam Location[place] [facility] [place]: new murmur BP: 130 / 70 HR: 70 Rhythm: Sinus Technical Quality: Adequate MEASUREMENTS (Male / Female) Normal Values 2D ECHO LVOT Diameter 2.1 cm LV Ejection Fraction MOD 2C 64.3 % LV Ejection Fraction 2C AL 64.4 % LA Diameter 3.6 cm LA Width 4.0 cm LA Height 4.6 cm RA Width 3.5 cm RA Height 4.7 cm Aorta at Sinotubular Diameter 2.4 cm IVC Diameter 1.9 cm M-MODE Aortic Annulus Diameter 2.9 cm LA Ao Ratio MM 1.2 MV E Point Septal Separation 0.7 cm DOPPLER AV Peak Velocity 202.3 cm/s LVOT Peak Velocity 138.0 cm/s AV Area Cont Eq vti 2.5 cm squared AV Area Cont Eq pk 2.4 cm squared MV Area PHT 4.3 cm squared Mitral E to A Ratio 1.0 MV E' Velocity 51.5 cm/s Mitral E to MV E' Ratio 16.6 Mitral E to LV E' Lateral Ratio 18.8 Mitral E to LV E' Septal Ratio 14.8 TR Peak Velocity 314.7 cm/s TR Peak Gradient 39.6 mmHg TR Mean Velocity 264.1 cm/s TR Mean Gradient 28.3 mmHg TR Velocity Time Integral 83.1 cm Right Atrial Pressure 3.0 mmHg Pulmonary Artery Systolic Pressu 42.6 mmHg PV Peak Velocity 88.0 cm/s RV Acceleration Time 0.1 s RV Ejection Time 0.3 s RV AcT/ET 0.2 FINDINGS Left Ventricle Left ventricle is normal in size. LV systolic function is normal with EF of 55 to 60%. No regional wall motion abnormalities are seen. Right Ventricle Normal in size and function Right Atrium Normal in size Left Atrium Normal in size Mitral Valve Mild mitral annular calcification. Trace mitral regurgitation. Aortic Valve Aotic valve is thickened. No significant aortic stenosis or regurgitation. Tricuspid Valve Mild tricuspid regurgitation. Insufficient TR jet to calculate RVSP Pulmonic Valve Not well visualized. Mild pulmonic regurgitation Pericardium Grossly normal Aorta Normal in size IVC Appears to be normal CONCLUSIONS LV systolic function is normal with EF of 55 to 60%. Trace mitral regurgitation Mild tricuspid regurgitation Mild pulmonic regurgitation No comparison studies are available Bo Veliz MD (Electronically Signed) Final Date: 16 Dec 2022 12:58 S
== END 2022-12-10 12:22 | disposition home or self-care (01) ==
LOC: RAD 12:25
PROVIDERS: PCP Family Medicine; Visit Provider Clinical Nurse Specialist Adult Health
DX: R01.1 Cardiac murmur, unspecified (principal); I07.1 Rheumatic tricuspid insufficiency; I37.1 Nonrheumatic pulmonary valve insufficiency
CPT/HCPCS: 93306

== ENCOUNTER 2022-12-22 16:39 | Observation (INO) | payer MEDICARE, SELFPAY ==
--- NOTE | 2022-12-15 09:57 | PC.NURSE ---
I spoke to Dr. Katharina Ruiz's nurse, and she stated pt had labs drawn on 11/29 so no need to draw labs today at pre op, only need UA.
[2022-12-15 10:16] VITALS: BMI 29.7
[2022-12-15 10:51] LABS: Add Urine Microscopic? NO; Charge for UA Resulting for Rev
[2022-12-15 11:00] LABS: Bilirubin Urine Neg (Negative); Blood Urine Neg (Negative); Glucose Urine UA Norm (Normal); Ketones Urine Negative (Negative); Leukocyte Esterase Urine Negative (Negative); Nitrate Urine Negative (Negative); Protein Urine Neg (Negative); Specific Gravity, Urine 1.025 (1.005-1.030); Urine Appearance Clear (CLEAR); Urine Color Yellow (Yellow); Urobilinogen Urine Neg (Negative); pH Urine 5 (5-7)
--- NOTE | 2022-12-15 14:16 | ANES.PREANE2 ---
Pre-Anesthetic Assessment Height/Weight: Height 1.7 m Weight 86.183 kg Preop Diagnosis: Right knee DJD Operation Date: 12/22/22 07:00 Proposed Procedures p LEFT TOTAL KNEE ARTHROPLASTY WITH NEYMAR GUIDANCE 50171 M17.10(Left) - Kirsty Posadas MD Familial anesthetic complications: none Was Beta Bindu taken within 24 hours: N/A Was Clonidine taken within 24 hours: N/A Social No alcohol and No tobacco Exam alert, oriented x 3, clear to auscultation bilaterally and regular rate & rhythm Airway Submandibular: within normal limits Cervical ROM: within normal limits Mallampati: Class II Dentition: chipped CV/HEM Hypertension and Murmur Metabolic Diabetes Mellitus and Hyperlipidemia [facility] [place] Osteoarthritis/DJD Anesthetic Plan ASA status: 3 Anesthesia: Regional (specify below) (SAB with adductor blk) Medications/Allergies Home Medications Medication Instructions Recorded Confirmed Last Taken Type glimepiride 1 mg tablet 1 mg PO DAILY 06/26/20 12/15/22 1 Day Ago History ~12/14/22 lovastatin 10 mg tablet 10 mg PO DAILY 06/26/20 12/15/22 1 Day Ago History ~12/14/22 metoprolol tartrate 25 mg tablet 12.5 mg PO BID 06/26/20 12/15/22 1 Day Ago History ~12/14/22 multivitamin 1 tab PO DAILY 06/26/20 12/15/22 1 Day Ago History ~12/14/22 omega-3 fatty acids 1,000 mg 1,000 mg PO DAILY 06/26/20 12/15/22 1 Day Ago History capsule (Fish Oil Concentrate) ~12/14/22 turmeric 400 mg capsule 400 mg PO DAILY 06/26/20 12/15/22 1 Day Ago History ~12/14/22 amlodipine 5 mg tablet 10 mg PO DAILY 12/25/20 12/15/22 1 Day Ago History ~12/14/22 lisinopril 5 mg tablet 5 mg PO BID 12/25/20 12/15/22 1 Day Ago History ~12/14/22 metformin 500 mg tablet 500 mg PO DAILY 12/25/20 12/15/22 1 Day Ago History ~12/14/22 allopurinol 300 mg tablet 300 mg PO DAILY 12/08/22 12/15/22 1 Day Ago History ~12/14/22 cranberry 400 mg capsule 400 mg PO DAILY 12/08/22 12/15/22 1 Day Ago History ~12/14/22 glucosamine sulfate 500 mg tablet 500 mg PO DAILY 12/08/22 12/15/22 1 Day Ago History (Cidatrine (glucosamine)) ~12/14/22 melatonin 3 mg capsule 3 mg PO DAILY 12/08/22 12/15/22 1 Day Ago History ~12/14/22 Allergies Allergy/AdvReac Type Severity Reaction Status Date / Time No Known Allergies Allergy Verified 12/15/22 10:10 [facility] Anesthesia Medical History (Updated 12/09/22 @ 10:04 by Wander Brennan NP) Gout High cholesterol Hypertension Primary osteoarthritis of left knee Type 2 diabetes mellitus Surgical History (Updated 12/08/22 @ 09:53 by Wander Brennan NP) History of carpal tunnel release Hx of right knee surgery Family History (Updated 12/08/22 @ 09:54 by Wander Brennan NP) Other Diabetes Hypertension Denies family history of Anesthesia complication Social History Smoking and tobacco status: never smoked Alcohol intake: former Substance/Drug Use: former Data Anesthesia Urine 12/15/22 Range/Units 10:40 Urine Color Yellow (Yellow) Urine Appearance Clear (CLEAR) Urine pH 5 (5-7) Ur Specific [place] 1.025 (1.005-1.030) Urine Protein Neg (Negative) Urine Glucose (UA) Norm (Normal) Urine Ketones Negative (Negative) Urine Nitrate Negative (Negative) Urine Bilirubin Neg (Negative) Ur Leukocyte Esterase Negative (Negative) Cardiac Studies: No Data to Display
[2022-12-22] VITALS (21 sets, daily range): BP systolic 103–191; BP diastolic 53–97; PULSE 54–76; RESP 14–18; TEMP 36.1–37.1; O2SAT 95–98; BMI 29.7
[2022-12-22] MEDS: CELEcoxib 200 mg Capsule 400 MG PO (05:53)
[2022-12-22] MEDS: sodium chloride 0.9% 1,000 ML 30 ML IV (05:56)
[2022-12-22] MEDS: acetaminophen 1,000 MG/100 ML PIGGYBACK 400 MG IV ×3 (05:59→22:09)
[2022-12-22 06:04] LABS: Glucose Point of Care 139 mg/dL (70-110)
--- NOTE | 2022-12-22 06:32 | ECG_ITS ---
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 Measurements Intervals [place] Rate: 55 P: 97 WI: 172 QRS: -12 QRSD: 148 T: -3 QT: 459 QTc: 441 Interpretive Statements SINUS BRADYCARDIA RIGHT BUNDLE BRANCH BLOCK [120+ ms QRS DURATION, UPRIGHT V1, 40+ ms S IN I/aVL/V4/V5/V6] Compared to ECG 12/25/2020 12:26:09 Right bundle-branch block now present Intraventricular conduction delay no longer present Electronically Signed On 12-22-2022 16:59:21 CDT by Bo Veliz M.D. [email or web address]
--- NOTE | 2022-12-22 06:47 | ANES.PAUD2 ---
Pre-Anesthetic Update Pre-Anesthetic Assessment: Date of Surgery/Procedure: 12/22/22 Preop Diagnosis: Primary osteoarthritis left knee Proposed Procedure: Operation Date: 12/22/22 07:00 Proposed Procedures p LEFT TOTAL KNEE ARTHROPLASTY WITH [facility] GUIDANCE 79907 M17.10(Left) - Kirsty Posadas MD Any changes to Pre-Anesthetic Assessment?: No Last Intake: Intake Last Liquid Date 12/21/22 Last Liquid Time 22:00 Last Solid Date 12/21/22 Last Solid Time 16:30 Vitals: Temperature 98.5 F 12/22/22 05:45 Temperature Source Temporal Artery S can 12/22/22 05:45 Pulse Rate 73 12/22/22 05:45 Respiratory Rate 16 12/22/22 05:45 Blood Pressure 191/97 12/22/22 05:45 Blood Pressure Rosemary n 128 12/22/22 05:45 Pulse Oximetry 98 12/22/22 05:45 Oxygen Delivery Me thod Room Air 12/22/22 05:49 Exam: Pre-Anes Outpt Exam: alert, oriented x 3, clear to auscultation bilaterally and regular rate & rhythm Cardiac Studies: Echocardiogram 12/10/22
--- NOTE | 2022-12-22 06:48 | W.PM.OPSUD ---
Surgery/Procedure H&P Update DATE OF PROCEDURE: December 22, 2022 DATE H&P PERFORMED: 11/30/22 H&P UPDATE INFORMATION: I have reviewed H&P completed within last 30 days, I have examined patient prior to procedure, No changes to prior documentation and H&P is in [facility] EMR on date indicated PREOP DIAGNOSIS: Primary osteoarthritis left knee PLANNED PROCEDURE: Operation Date: 12/22/22 07:00 Proposed Procedures p LEFT TOTAL KNEE ARTHROPLASTY WITH NEYMAR GUIDANCE 49296 M17.10(Left) - Kirsty Posadas MD Related Problem List Diagnoses (1) Primary osteoarthritis of left knee:
[2022-12-22] MEDS: ceFAZolin 2,000 MG in sodium chloride 0.9% (plus) 50 ML 100 MG IV ×3 (06:57→22:36)
[2022-12-22] MEDS: tranexamic acid 1,000 mg/10mL SDV 1000 MG IV (07:32)
[2022-12-22] MEDS: ceFAZolin 1,000 mg SDV 2000 MG IRRIGATION (07:40)
[2022-12-22] MEDS: vancomycin 1,000 MG SDV 1000 MG XX (07:40)
--- NOTE | 2022-12-22 10:27 | P.OP_ITS ---
Operative Report Date of procedure: December 22, 2022 Pre-op diagnosis: Primary osteoarthritis left knee Post-op diagnosis: Primary osteoarthritis left knee Post-op findings: Severe osteoarthritis with large osteophytes and significant flexion contracture Procedure done: Left total knee arthroplasty Implants: The [place] total knee system with a size 5 triathlon beaded cruciate retaining femur left, a triathlon titanium tibial component size 5 beaded, a triathlon X3 tibial bearing CS insert size 5 X 10 mm and a beaded triathlon titanium asymmetric patella size 35 x 10 mm Specimens removed/disposition: Bone, disposed of Pathology: none sent Surgeon: Kirsty Posadas Certified Respiratory Therapist: [facility] Anesthesia: MAC (With spinal) Estimated blood loss (mL): 400 Tourniquet time (min): 0 (Not utilized) IV fluids (mL): 800 Urine output (mL): 200 Complications: None Condition: stable Disposition: PACU (The to floor for post-operative rehabilitation) Brief History: This is an established 76 year old female here today for left knee pain. She underwent right total knee arthroplasty and has recovered nicely. This prior surgery was in 2020. Patient rates pain in the left knee 3/10 in pre-op clinic. Patient states the pain can keep her up at night unless she is taking melatonin. Patient is not taking anything for her knee pain. Patient states using the stairs or squatting down causes pain. Patient states the pain can be sharp and achy at times. She was seen preoperatively in clinic, and questions were answered. Consents were signed. The patient wished to proceed with the surgical intervention. Procedure: The patient was brought to the operating theater, and after undergoing spinal anesthesia with supplemental MAC, as well as an adductor canal block, ASA 3, the right lower extremity was prepped with Dura-Prep and draped in usual fashion following placement of a tourniquet high on the leg. The leg was then draped free.? Tourniquet was not elevated during the case.? A surgical pause was performed, and at the time of the surgical pause, we confirmed the site and side of surgery. Additionally, we confirmed the appropriate and timely administration of preoperative antibiotics, Ancef 2 g and Transexemic acid 1 g.? The availability of equipment was confirmed, and the patient's identity was verbalized as well.? An additional transexemic acid 1 g will be given on the floor as well. Following the surgical pause, an incision was made centering over the patella continuing proximally and distally as necessary to allow access to the knee joint. Dissection continued through skin and soft tissues using a scalpel. Hemostasis was obtained using electrocautery. The skin incision was followed by a median parapatellar arthrotomy. The leg was extended and the patella was able to be displaced laterally.? Appropriate arrays and markers were placed in appropriate position for use of the Domenico.? Preoperative planning had been accom plished and was discussed in detail with the [facility] strategic partnership representative.? Intraoperative mapping of the femur and tibia was accomplished after the arrays were placed.? Internal markers were also placed.? Once we had accomplished the Domenico mapping, we began the appropriate resections for placement of the prosthesis.? The plan was for a cruciate retaining right total knee arthroplasty. Once appropriate mapping had been accomplished retraction was established using manual retraction by surgical technicians and also the Domenico leg positioner and retractors.? The knee was evaluated.? There was significant osteoarthritic change with significant osteophyte formation a significant varus deformity.? Appropriate bone resection was accomplished using the Domenico.? The femur was sized to a size 5.? Following femoral cuts, attention was directed to the tibia.? Osteophytes were removed prior to this portion of the procedure.? We had performed a medial release at the beginning of the procedure to allow for place ment of the array and to allow for better planning with flexion and extension adjustments per Domenico programming.? Proximal tibia was evaluated, and it was felt that appropriate size for the tibia was a size 5.? Tray was noted to fit nicely with good coverage.? Rim fit was accomplished with the size 5. A trial reduction was accomplished after osteophytes have been removed as well as the medial and lateral menisci.? We had removed the anterior cruciate ligament at the beginning of the case and preserved the posterior cruciate ligament.? Trial reduction was accomplished with a size 5 femoral cruciate retaining component and a size 5 CS tibial bearing insert which was 9 mm in thickness initially.? Final insert was an 10 mm implant.? Alignment was felt to be appropriate as well.? Trial components were removed after the femur had been drilled.? Prior to removal of the tibial tray which had been pinned in position with appropriate rotation as determined by the Domenico plan, we broached the tibia .? Subsequently, the 4 drill holes were made for the prosthetic component.? All trial components were removed, and the wound was irrigated.? Plans were made for insertion of the prosthetic components.? Prior to this, the patella was manually prepared.? After resection of the articular surface with the jogging system, it was measured and measured a 35 mm patella.? We resected approximately 10 mm of patella.? Patellar height was restored with the patellar component. Once again, the wound was irrigated.? The Tritanium tibia was impacted into position.? The beaded femur was then impacted into position in a cementless fashion. The CS tibial insert was placed prior to placement of the femoral component. The patella was pressed into position with a patellar clamp.? Exparel was injected about the components deep and superficially.? The knee was then copiously irrigated with betadine and saline and suctioned dry. Attention was then directed to closure. Closure was accomplished with 0 Vicryl in the fascial tissues.? This was followed by Surgiflo and vancomycin powder.? Following this, a 2-0 Monocryl was used in the subcutaneous tissues, and the skin was closed with skin miles.? Care was taken to assure an excellent subcutaneous as well as skin closure.? A sterile dressing was then placed consisting of Dermabond Prineo, OpSite, sterile soft roll including over the foot, and an Calvin wrap. The patient was returned the Recovery Room in a satisfactory condition. X-rays were obtained and reviewed there.? The patient will be discharged to the floor for postoperative rehabilitation and pain management. Related Problem List Diagnoses (1) Primary osteoarthritis of left knee: (2) Status post total left knee replacement not using cement:
--- NOTE | 2022-12-22 10:29 | PC.NURSE ---
Pt arrived to PACU, awake, denies any pain or nausea at this time. Dressing to left knee C/D/I, left toes p/w/d, cap refill <3 seconds, good pedal pulse noted, able to wiggle toes. Ice pack applied. Pt reports sensation above level L2. Tay catheter in patent and draining.
--- NOTE | 2022-12-22 10:37 | XRR_ITS ---
PROCEDURE INFORMATION: Exam: XR Left Knee Exam date and time: 12/22/2022 10:44 AM Age: 76 years old Clinical indication: Device placement; Joint replacement hardware; Prior surgery; Surgery date: Post-operative (0-2 days); Surgery type: Status post left total knee arthroplasty TECHNIQUE: Imaging protocol: Radiologic exam of the left knee. Views: 1 or 2 views. COMPARISON: CT knee LT [facility] 11/11/2022 1:50 PM FINDINGS: Bones/joints: Total knee arthroplasty noted. Good bone implant interface identified. No fracture or dislocation. Soft tissues: Surgical miles overlying the knee. Expected subcutaneous emphysema status post surgical intervention. XR/XR knee LT 1-2V [id number] IMPRESSION: Normal appearing postoperative total knee arthroplasty.
--- NOTE | 2022-12-22 10:44 | PC.NURSE ---
Left knee xrays obtained.
[2022-12-22] MEDS: fentaNYL 50 mcg/mL INJ 2mL IVP (10:55)
--- NOTE | 2022-12-22 14:51 | ANE.PACU2 ---
Inpatient post-anesthesia follow up: Airway intact: Yes Vital signs: Temperature 97.0 F Pulse Rate 76 Respiratory Rate 18 Blood Pressure 122/59 Pulse Oximetry 98 Oxygen Delivery Me thod Room Air Oxygen Flow Rate Fraction of Inspir ed Oxygen Hydration adequate: Yes Nausea and vomiting: No Pain level: 1 Mental status: Baseline
[2022-12-22 16:51] LABS: Glucose Point of Care 196 mg/dL (70-110)
[2022-12-22] MEDS: calcium carbonate 500 mg Chew Tablet 1000 MG PO (17:16)
[2022-12-22] MEDS: sennosides-docusate Tablet 2 TAB PO (17:16)
[2022-12-22] MEDS: iron polysaccharide complex 150 mg Capsule PO (17:16)
[2022-12-22] MEDS: CELEcoxib 200 mg Capsule PO (17:16)
[2022-12-22] MEDS: chlorhexidine gluconate 0.12% UDC 15 mL 30 ML MUCOUS MEM ×2 (18:14→21:05)
[2022-12-22] MEDS: oxyCODONE 5 mg IR Tab/Cap PO (19:32)
[2022-12-22] MEDS: metoprolol tartrate 25 mg Tablet 12.5 MG PO (20:58)
[2022-12-22 21:40] LABS: Glucose Point of Care 226 mg/dL (70-110)
[2022-12-23 01:20] VITALS: RESP 16; O2SAT 95
[2022-12-23] MEDS: oxyCODONE 5 mg IR Tab/Cap PO ×3 (01:20→11:25)
[2022-12-23 04:01] VITALS: BP 99/59; PULSE 61; RESP 16; TEMP 37; O2SAT 94
[2022-12-23 04:02] LABS: Basophils % 0.2 %; Hematocrit 29.3 % (37.0-47.0); Hemoglobin 9.6 g/dL (11.5-15.3); Lymphocytes # 1.7 10^3/uL (0.8-4.8); Lymphocytes % 18.1 %; Mean Corpuscular HGB Conc 32.8 g/dL (30.0-36.0); Mean Corpuscular Hemoglobin 28.7 pg (28.0-34.0); Mean Corpuscular Volume 87.7 fl (81-99); Mean Platelet Volume 11.3 fL (7.4-10.4); Monocytes % 10.9 %; Neutrophils % 70.5 %; Nucleated Red Blood Cells % 0 %; Platelet Count 242 10^3/cmm (130-400); Red Blood Count 3.34 10^6/uL (4.1-5.3); Red Cell Distribution Width 14.4 % (12.1-15.1); White Blood Count 9.5 10^3/uL (4.0-10.0)
[2022-12-23 04:31] LABS: Anion Gap 14.4 (5-19); Blood Urea Nitrogen 15 mg/dL (8-23); Calcium 8.6 mg/dL (8.5-10.5); Carbon Dioxide 20 mmol/L (22-29); Chloride 105 mmol/L (98-107); Creatinine Clr Calc Pharmacy 65.3564; Glucose 157 mg/dL (65-115); Osmolality Calculated 284 mOsm/kg (285-295); Potassium 4.4 mmol/L (3.5-5.1); Sodium 135 mmol/L (136-145)
[2022-12-23] MEDS: acetaminophen 1,000 MG/100 ML PIGGYBACK 400 MG IV (05:34)
[2022-12-23] MEDS: CELEcoxib 200 mg Capsule PO (05:34)
[2022-12-23] MEDS: ceFAZolin 2,000 MG in sodium chloride 0.9% (plus) 50 ML 100 MG IV (06:00)
--- NOTE | 2022-12-23 06:03 | PC.NURSE ---
cath removed, pt tolerated without difficulty
[2022-12-23 06:11] VITALS: RESP 16; O2SAT 94
[2022-12-23] MEDS: calcium carbonate 500 mg Chew Tablet 1000 MG PO (08:29)
[2022-12-23] MEDS: iron polysaccharide complex 150 mg Capsule PO (08:29)
[2022-12-23] MEDS: metformin 500 mg Tablet PO (08:29)
[2022-12-23] MEDS: allopurinol 300 mg Tablet PO (08:29)
[2022-12-23] MEDS: cholecalciferol (vitamin D3) 1,000 unit Tablet 1000 UNIT PO (08:29)
[2022-12-23] MEDS: chlorhexidine gluconate 0.12% UDC 15 mL 30 ML MUCOUS MEM ×2 (08:29→13:06)
[2022-12-23] MEDS: lisinopril 5 mg Tablet PO (08:29)
[2022-12-23] MEDS: sennosides-docusate Tablet 2 TAB PO (08:29)
[2022-12-23] MEDS: aspirin 325 mg EC Tablet PO (08:29)
[2022-12-23] MEDS: atorvastatin 40 mg Tablet 20 MG PO (08:30)
[2022-12-23] MEDS: metoprolol tartrate 25 mg Tablet 12.5 MG PO (08:30)
[2022-12-23] MEDS: amlodipine 10 mg Tablet PO (08:30)
[2022-12-23] MEDS: multivitamin therapeutic Tablet 1 TAB PO (08:30)
[2022-12-23 11:25] VITALS: RESP 18
[2022-12-23] MEDS: acetaminophen 500 mg Tablet 1000 MG PO (13:07)
--- NOTE | 2022-12-23 13:25 | PM.DCS ---
Discharge Providers Date of Admission: 12/22/22 16:39 Date of Discharge: December 23, 2022 Attending Provider at Admission: Kirsty Posadas MD Attending Provider at Discharge: Kirsty Posadas MD Primary Care Provider: Kulwant Amaro MD Diagnoses at Discharge Discharge Diagnosis (1) Status post total left knee replacement not using cement: Status: Acute Permanent problem details: Implants: The [place] total knee system with a size 5 triathlon beaded posterior stabilized femur left, a triathlon titanium tibial component size 5 beaded, a triathlon X3 posterior stabilized tibial bearing insert size 5 X 10 mm and a beaded triathlon titanium asymmetric patella size 32 x 10 mm (2) Primary osteoarthritis of left knee: Status: Acute Reason for Visit Reason for Visit: 88303, M17.10 Hospital Course Hospital Course This is an established 76 year old female here today for left knee pain.? She underwent right total knee arthroplasty and has recovered nicely.? This prior surgery was in 2020.? Patient rates pain in the left knee 3/ in pre-op clinic. Patient states the pain can keep her up at night unless she is taking melatonin. Patient is not taking anything for her knee pain. Patient states using the stairs or squatting down causes pain. Patient states the pain can be sharp and achy at times.? She was seen preoperatively in clinic, and questions were answered.? Consents were signed.? The patient wished to proceed with the surgical intervention. Physical Exam Const: COMMON NORMALS: no acute distress, average body habitus, patient oriented x3 and alert GENERAL APPEARANCE: cooperative and comfortable ORIENTATION/CONSCIOUSNESS: Yes awake HENMT: COMMON NORMALS: normocephalic and atraumatic HEAD & SCALP: normocephalic and atraumatic Eye: GENERAL EYE: appearance normal, both eyes and all related structures Chest: COMMONS NORMALS: normal inspection of the chest Resp: COMMON NORMALS: normal respiratory effort EFFORT & INSPECTION: Yes able to speak in complete sentences and Yes symmetric chest movement Extremity: LEFT LOWER EXTREMITY: Yes knee joint (Large outer dressing is removed from the knee joint.) Left knee: Yes inspection (Minimal swelling and ecchymosis.) and Yes neurovascular exam (Intact distally with no evidence of DVT) Neuro: COMMON NORMALS: patient oriented x3 SENSORIUM/ORIENTATION: Yes alert Psych: COMMON NORMALS: mental status grossly normal APPEARANCE: Yes grossly normal ATTITUDE: Yes calm and Yes engaged ATTENTION/CONCENTRATION: Yes attention grossly intact Skin: COMMON NORMALS: no rashes or lesions noted GENERAL SKIN EXAM: no rashes or lesions noted Urinary Catheter Management: Tay: Cath Placed During This Visit: yes, but has since been removed by the nurse Reason for Continuing Indwelling Catheter: Acute Urinary Retention or Obstruction Urinary Catheter Date of Insertion: 12/22/22 Urinary Catheter Time of Insertion: 07:15 Date Urinary Catheter Removed: 12/23/22 Time Urinary Catheter Discontinued: 06:01 Discharge Data Studies Completed and Pending Completed Studies During Hospitalization Category Date Time Status XR knee LT 1-2V 17326 Routine Exams 12/22/22 10:37 Completed Radiology Impressions Knee X-Ray 12/22/22 10:37 IMPRESSION: Normal appearing postoperative total knee arthroplasty. Laboratory Results WBC 9.5 10^3/uL (4.0-10.0) 12/23/22 03:17 RBC 3.34 10^6/uL (4.1-5.3) L 12/23/22 03:17 Hgb 9.6 g/dL (11.5-15.3) L 12/23/22 03:17 Hct 29.3 % (37.0-47.0) L 12/23/22 03:17 MCV 87.7 fl (81-99) 12/23/22 03:17 MCH 28.7 pg (28.0-34.0) 12/23/22 03:17 MCHC 32.8 g/dL (30.0-36.0) 12/23/22 03:17 RDW 14.4 % (12.1-15.1) 12/23/22 03:17 Plt Count 242 10^3/cmm (130-400) 12/23/22 03:17 MPV 11.3 fL (7.4-10.4) H 12/23/22 03:17 Neut % (Auto) 70.5 % 12/23/22 03:17 Lymph % (Auto) 18.1 % 12/23/22 03:17 [place] % (Auto) 10.9 % 12/23/22 03:17 Eos % (Auto) 0.0 % 12/23/22 03:17 Baso % (Auto) 0.2 % 12/23/22 03:17 Neut # (Auto) 6.70 10^3/uL (1.8-7.7) 12/23/22 03:17 Lymph # (Auto) 1.7 10^3/uL (0.8-4.8) 12/23/22 03:17 [place] # (Auto) 1.0 10^3/uL (0.2-0.9) H 12/23/22 03:17 Eos # (Auto) 0.0 10^3/uL (0.0-0.8) 12/23/22 03:17 Baso # (Auto) 0.0 10^3/uL (0.0-0.1) 12/23/22 03:17 Nucleated RBC % (auto) 0 % 12/23/22 03:17 Nucleated RBCs # 0.0 /100WBC 12/23/22 03:17 Sodium 135 mmol/L (136-145) L 12/23/22 03:17 Potassium 4.4 mmol/L (3.5-5.1) 12/23/22 03:17 Chloride 105 mmol/L (98-107) 12/23/22 03:17 Carbon Dioxide 20 mmol/L (22-29) L 12/23/22 03:17 Anion Gap 14.4 (5-19) 12/23/22 03:17 BUN 15 mg/dL (8-23) 12/23/22 03:17 Creatinine 0.8 mg/dL (0.5-0.9) 12/23/22 03:17 GFR Calculation Not Reportable 12/23/22 03:17 Glucose 157 mg/dL (65-115) H 12/23/22 03:17 POC Glucose 226 mg/dL (70-110) H 12/22/22 21:26 Calculated Osmolality 284 mOsm/kg (285-295) L 12/23/22 03:17 Calcium 8.6 mg/dL (8.5-10.5) 12/23/22 03:17 Urine Color Yellow (Yellow) 12/15/22 10:40 Urine Appearance Clear (CLEAR) 12/15/22 10:40 Urine pH 5 (5-7) 12/15/22 10:40 Ur Specific [place] 1.025 (1.005-1.030) 12/15/22 10:40 Urine Protein Neg (Negative) 12/15/22 10:40 Urine Glucose (UA) Norm (Normal) 12/15/22 10:40 Urine Ketones Negative (Negative) 12/15/22 10:40 Urine Blood Neg (Negative) 12/15/22 10:40 Urine Nitrate Negative (Negative) 12/15/22 10:40 Urine Bilirubin Neg (Negative) 12/15/22 10:40 Urine Urobilinogen Neg mg/dL (Negative) 12/15/22 10:40 Ur Leukocyte Esterase Negative (Negative) 12/15/22 10:40 Blood Type A Positive 12/22/22 06:00 Rho(D) Type Positive 12/22/22 06:00 Antibody Screen Negative 12/22/22 06:00 Vitals Last Vital Signs Temp 98.6 F 12/23/22 04:01 Pulse 61 12/23/22 04:01 Resp 18 12/23/22 11:25 BP 99/59 12/23/22 04:01 Pulse Ox 94 12/23/22 06:11 O2 Del Method Room Air 12/22/22 17:19 Discharge Plan Discharge Patient Disposition: Home Condition: Stable Prescriptions: New celecoxib 200 mg Capsule 200 mg PO 1XD 30 Days Qty: 30 0RF acetaminophen 500 mg Tablet 1,000 mg PO Q8H 15 Days Qty: 90 0RF aspirin 325 mg Tablet,Delayed Release (Dr/Ec) 325 mg PO DAILY 30 Days Qty: 30 0RF oxycodone 5 mg Tablet 5 mg PO Q4H PRN (Reason: Moderate Pain) 7 Days Qty: 30 0RF Continued metoprolol tartrate 25 mg tablet 12.5 mg PO BID lovastatin 10 mg tablet 10 mg PO DAILY glimepiride 1 mg tablet 1 mg PO DAILY omega-3 fatty acids [Fish Oil Concentrate] 1,000 mg capsule 1,000 mg PO DAILY multivitamin Tablet 1 tab PO DAILY turmeric 400 mg capsule 400 mg PO DAILY amlodipine 5 mg tablet 10 mg PO DAILY allopurinol 300 mg tablet 300 mg PO DAILY glucosamine sulfate [Cidatrine (glucosamine)] 500 mg tablet 500 mg PO DAILY Rx Instructions: administer with a meal melatonin 3 mg capsule 3 mg PO DAILY cranberry 400 mg capsule 400 mg PO DAILY Rx Instructions: administer with a meal lisinopril 5 mg Tablet 5 mg PO BID metformin 500 mg Tablet 500 mg PO DAILY Discharge Orders: Discharge Order (Routine); Ordered 12/23/22 Ordered By: Kirsty Posadas Other Ambulatory Orders: DME: Walker (Order) Location: None Selected Ordered By: Kirsty Posadas Physical Therapy Eval and Treat Outpatient (Order) Timeframe: 2 Days Facility: [facility] - Location: Physical Therapy [place] Ordered By: Kirsty Posadas Referrals: Kirsty Posadas MD [Physician] - 01/05/23 8:15 am Discharge Diet: Advance as tolerated and Usual diet Discharge Activity: Increase activity as tolerated, Limit activity as instructed, Use walker/crutches as instructed and As per PT/OT instructions Patient Instructions: Aspirin (By mouth), Oxycodone, Rapid Release (By mouth), Celecoxib (By mouth), Knee Replacement (GEN), Opioid Safety Activity Restrictions/Additional Instructions: Range of motion and strengthening, gait training for PT. Ice and elevation to left lower extremity. Maintain dressing. Weightbearing as tolerated. Discharge Attestations Time Spent in Discharge Care*: greater than 30 min Specific Discharge Activities: educating patient, documenting/other paperwork and evaluating patient/reviewing data Quality Metrics Clinical Quality Measures [ No reported AMI, CVA or VTE this stay] Coding Level of Care Code Acute Code for Chg Fwd Diagnoses Status post total left knee replacement not using cement Z96.652 Primary osteoarthritis of left knee M17.12
[2022-12-23 14:59] VITALS: RESP 18
== END 2022-12-23 16:04 | disposition home or self-care (01) ==
LOC: MEDSURG 19:30
PROVIDERS: Admitting Provider Specialist; PCP Family Medicine; Visit Provider Specialist
PROC: 8E0Y0CZ Robotic Assisted Procedure of Lower Extremity, Open Approach (ICD-10-PCS; CPT 27447; principal; 2022-12-22 07:00)
DX: M17.12 Unilateral primary osteoarthritis, left knee (principal); I10 Essential (primary) hypertension; R01.1 Cardiac murmur, unspecified; E11.9 Type 2 diabetes mellitus without complications; E78.5 Hyperlipidemia, unspecified; Z79.84 Long term (current) use of oral hypoglycemic drugs; R00.1 Bradycardia, unspecified; I45.10 Unspecified right bundle-branch block
CPT/HCPCS: 20985; 27447; 36415; 36416; 51702; 73560; 80048; 81003; 82962; 85025; 86850; 86900; 93005; 97110; 97116; 97161; 97165; C1776; C9290; G0378; J0131; J0690; J1100; J2370; J2704; J2795; J3010; J3370; J3490; J7030

== ENCOUNTER → 2022-12-30 10:38 | Outpatient (BNVA) | payer MEDICARE, SELFPAY | PROVIDERS: PCP Family Medicine; Visit Provider Specialist | DX: Z96.652 Presence of left artificial knee joint (principal); M17.12 Unilateral primary osteoarthritis, left knee | CPT/HCPCS: 73560; 73565; 97161; 99024 ==

== ENCOUNTER 2022-12-30 12:25 | Outpatient (RCR) | payer MEDICARE, SELFPAY | END 2023-01-06 23:59 | disposition home or self-care (01) | LOC: SPT 12:25 | PROVIDERS: PCP Family Medicine; Visit Provider Specialist | DX: Z96.652 Presence of left artificial knee joint (principal); M17.12 Unilateral primary osteoarthritis, left knee | CPT/HCPCS: 97161; 99024 ==

== ENCOUNTER → 2023-01-05 08:06 | Outpatient (BNVA) | payer MEDICARE, SELFPAY | PROVIDERS: PCP Family Medicine; Visit Provider Nurse Practitioner Family | DX: Z96.652 Presence of left artificial knee joint (principal) | CPT/HCPCS: 99024 ==

== ENCOUNTER 2023-01-07 16:02 | Outpatient (RCR) | payer MEDICARE, SELFPAY | END 2023-02-05 23:59 | disposition home or self-care (01) | LOC: SPT 16:02 | PROVIDERS: PCP Family Medicine; Visit Provider Specialist | DX: M17.12 Unilateral primary osteoarthritis, left knee (principal); Z98.890 Other specified postprocedural states | CPT/HCPCS: 97110 ==

== ENCOUNTER → 2023-02-03 12:56 | Outpatient (BNVA) | payer MEDICARE, SELFPAY | PROVIDERS: PCP Family Medicine; Visit Provider Specialist | DX: Z96.652 Presence of left artificial knee joint (principal) | CPT/HCPCS: 73560; 73565; 99024 ==

== ENCOUNTER 2023-02-06 06:00 | Outpatient (RCR) | payer MEDICARE, SELFPAY | END 2023-03-08 23:59 | disposition home or self-care (01) | LOC: SPT 06:00 | PROVIDERS: PCP Family Medicine; Visit Provider Specialist | DX: M17.12 Unilateral primary osteoarthritis, left knee (principal) | CPT/HCPCS: 97110 ==

== ENCOUNTER → 2023-04-28 13:33 | Outpatient (BNVA) | payer MEDICARE, SELFPAY | PROVIDERS: PCP Family Medicine; Visit Provider Specialist | DX: Z96.652 Presence of left artificial knee joint (principal); M17.12 Unilateral primary osteoarthritis, left knee | CPT/HCPCS: 73560; 73565; 99213 ==

== ENCOUNTER → 2023-12-20 13:10 | Outpatient (BNVA) | payer MEDICARE, SELFPAY | PROVIDERS: PCP Family Medicine; Visit Provider Specialist | DX: Z96.653 Presence of artificial knee joint, bilateral (principal) | CPT/HCPCS: 73560; 73565; 99214 ==

== ENCOUNTER → 2024-01-25 11:30 | Outpatient (BNVA) | payer MEDICARE, SELFPAY | PROVIDERS: PCP Family Medicine; Visit Provider Internal Medicine Cardiovascular Disease | DX: R00.2 Palpitations (principal); I47.10 Supraventricular tachycardia, unspecified; I49.1 Atrial premature depolarization; I49.3 Ventricular premature depolarization | CPT/HCPCS: 93225 ==

== ENCOUNTER → 2024-05-25 14:45 | Outpatient (BNVA) | payer MEDICARE, SELFPAY | PROVIDERS: PCP Family Medicine; Visit Provider Internal Medicine Cardiovascular Disease | DX: R00.2 Palpitations (principal); I10 Essential (primary) hypertension; E78.00 Pure hypercholesterolemia, unspecified; R01.1 Cardiac murmur, unspecified; R94.31 Abnormal electrocardiogram [ECG] [EKG] | CPT/HCPCS: 99204 ==

== ENCOUNTER → 2024-05-25 15:53 | Outpatient (BNVA) | payer MEDICARE, SELFPAY | PROVIDERS: PCP Family Medicine; Visit Provider Internal Medicine Cardiovascular Disease | DX: R00.2 Palpitations (principal); I49.1 Atrial premature depolarization; I49.3 Ventricular premature depolarization; I47.19 Other supraventricular tachycardia | CPT/HCPCS: 93246 ==

== ENCOUNTER 2024-07-10 09:28 | Outpatient (CLI) | payer MEDICARE, SELFPAY ==
--- NOTE | 2024-07-10 | ECG_ITS ---
[facility] Test Date: 2024-07-10 Pat Name: Maria Fernanda Dahl Department: Room: Gender: Female [employer] Forming: : 1945 Requested By: Ashok Graves Order Number: [id number] Jessica MD: Ashok Graves M.D. Interpretive Statements Lung unchanged pre/post procedure; Intraprocedure shortess of breath; Symptoms resoled by discharge PROCEDURE: At the baseline, the EKG revealed normal sinus rhythm with right bundle branch block pattern. Nonspecific T wave changes.. The baseline heart was 86 bpm with a blood pressue of 144/79 mm of Hg Lexiscan was infused over a period of 20 seconds. A total of 0.4 milligrams of Lexiscan was infused. The stress phase was continued for a total of 5 minutes. Heart rate at the end of the stress phase was 87 bpm with a blood pressure 134/63 mm of Hg. The EKG at the peak infusion revealed no significant changes. Sestamibi was injected 20 seconds after the Lexiscan infusion. Heart rate at the end of the recovery phase was 84 bpm with a blood pressure of 129/62 mm of Hg. CONCLUSION: 1. No significant EKG changes with the LexiScan infusion 2. No LexiScan induced chest pain or cardiac arrhythmia 3. Normal blood pressure and heart rate response 4. Sestamibi/sestamibi perfusion scan pending; see separate report. Electronically Signed On 07-10-2024 20:50:37 INSURANCE PROFESSIONAL by Ashok Graves M.D. [email or web address]
[2024-07-10 10:20] VITALS: BMI 30.5
--- NOTE | 2024-07-10 10:29 | NMCV_ITS ---
NM derik perf SPECT r/s* [id number] Maria Fernanda Dahl Age: 78 Gender: F : 1945 Exam Date: 07/10/2024 10:42 Ordering Phys: Ashok Graves MD ([email or web address]) Technologist: [place] Exam Location: [facility] Indications: cp STRESS TEST Please see separate stress test report in [facility] for full findings IMAGE PROTOCOL Rest/Stress 1 Lexiscan Day Radiopharmaceutical Dose (mCi) Administration Site Administered by Rest: Tc-99m 10.7 IV Brittaney Lloyd DIRECTOR DANCE Sestamibi Stress:Tc-99m 33 IV Brittaney Lopezgle, DIRECTOR DANCE Sestamibi Rest: 10-Jul-2024 60 Discovery 630 Stress: 10-Jul-2024 30 Discovery 630 0.4mg Lexiscan. Supine position only as patient was unable to lay prone. SPECT RESULTS Technical Quality: Good Raw Data Analysis: Normal Image Corrections: No attenuation or motion correction applied Summed Stress Score: 0 Summed Rest Score: 7 Summed Difference Score: 0 PERFUSION FINDINGS Fairly uniform myocardial tracer uptake with no significant perfusion abnormalities FUNCTIONAL RESULTS (calculated via Gated SPECT) Stress Image LV EF (%): 80 Stress EDV (mL):79 TID: 0.93 Stress ESV (mL):16 FUNCTIONAL FINDINGS: Segmental wall motion analysis revealing no gross wall motion abnormalities IMPRESSIONS 1. Myocardial perfusion imaging revealing uniform myocardial tracer uptake with no significant Perfusion abnormalities 2. Normal LV ejection fraction of 80% 3. LV wall motion analysis revealing no gross wall motion abnormalities. 4. Normal LV volume Low probability for coronary ischemia, based on the above findings Dr Ashok Graves MD FACC (Electronically Signed) Final Date: 11 July 2024 09:08 S
[2024-07-10] MEDS: regadenoson 0.4 Mg/5 ml Syringe IVP (11:14)
[2024-07-10 11:26] VITALS: BP 129/62; PULSE 89
== END 2024-07-10 09:29 | disposition home or self-care (01) ==
LOC: CDL 09:29
PROVIDERS: PCP Family Medicine; Visit Provider Internal Medicine Cardiovascular Disease
DX: R94.31 Abnormal electrocardiogram [ECG] [EKG] (principal); I47.10 Supraventricular tachycardia, unspecified
CPT/HCPCS: 36415; 78452; 93017; 96374; A9500; J2785

== ENCOUNTER → 2024-08-23 11:03 | Outpatient (BNVA) | payer MEDICARE, SELFPAY | PROVIDERS: PCP Family Medicine; Visit Provider Nurse Practitioner Family | DX: R00.2 Palpitations (principal); I10 Essential (primary) hypertension; E78.00 Pure hypercholesterolemia, unspecified; R01.1 Cardiac murmur, unspecified; R94.31 Abnormal electrocardiogram [ECG] [EKG] | CPT/HCPCS: 99213 ==

== ENCOUNTER → 2025-03-14 13:49 | Outpatient (BNVA) | payer MEDICARE, SELFPAY | PROVIDERS: PCP Family Medicine; Visit Provider Internal Medicine Cardiovascular Disease | DX: R00.2 Palpitations (principal); I65.23 Occlusion and stenosis of bilateral carotid arteries; I10 Essential (primary) hypertension; E78.00 Pure hypercholesterolemia, unspecified; R94.31 Abnormal electrocardiogram [ECG] [EKG]; R09.89 Other specified symptoms and signs involving the circulatory and respiratory systems; R60.0 Localized edema | CPT/HCPCS: 99214 ==

== ENCOUNTER 2025-03-22 14:29 | Outpatient (CLI) | payer MEDICARE, SELFPAY ==
--- NOTE | 2025-03-22 15:00 | USCV_ITS ---
[place] Maria Fernanda Age: 79 Gender: F : 1945 Exam Date: 03/22/2025 15:02 Ordering Phys: Ashok Graves MD ([email or web address]) Technologist: DANO Exam Location: [facility] [place] Indication: stenosis Risk Factors: Previous Vascular Surgery: Right Brachial BP: / Left Brachial BP: / Right Left Velocity (cm/s) Spectral Plaque Velocity (cm/s) Spectral Plaque Syst/Diast Broadening Syst/Diast Broadening 64.30/ 12.20 Prox CCA 71.90 / 12.50 72.80/ 14.30 Mid CCA 72.50 / 15.40 45.60/ 10.00 Distal CCA 48.30 / 18.90 57.40/ 10.60 Prox ICA 35.00 / 14.50 65.40/ 13.20 Mid ICA 55.50 / 11.60 76.10/ 18.60 Distal ICA 73.10 / 16.00 44.50 ECA 73.10 1.70 ICA/CCA 1.50 Antegrade Vertebral Antegrade 31.80/ 5.20 cm/s 30.10/ 11.70 cm/s Tri Subclavian Tri 147.4 5 CONCLUSIONS Right ICA stenosis <50%. Moderate atheromatous plaque right carotid bulb/ICA. Left ICA stenosis <50%. Moderate atheromatous plaque left carotid bulb/ICA. Intimal thickening in the common carotid arteries and internal carotid arteries bilaterally. Normal antegrade Doppler flow noted in the right vertebral artery. Normal antegrade Doppler flow noted in the left vertebral artery. Darien Artis MD (Electronically Signed) Final Date: 22 March 2025 16:52 S
== END 2025-03-22 14:30 | disposition home or self-care (01) ==
LOC: RAD 14:30
PROVIDERS: PCP Family Medicine; Visit Provider Internal Medicine Cardiovascular Disease
DX: I65.23 Occlusion and stenosis of bilateral carotid arteries (principal)
CPT/HCPCS: 93880